=== PATIENT | female | born 1975 | race African-American/Black ===

== ENCOUNTER 2018-06-09 16:22 | Emergency (ER) | payer OTHER ==
[~2018-06-09] VITALS: Ht 172.7 cm; Wt 113.4 kg
--- NOTE | 2018-06-09 17:56 | RADIOLOGY REPORT ---
EXAMINATION: XR ANKLE, LEFT XR FOOT, LEFT CLINICAL INFORMATION: Left foot and ankle pain after fall COMPARISON: None TECHNIQUE: Left ankle, 3 views Left foot, 3 views FINDINGS: Left ankle: Alignment is normal. The talar dome is well-positioned within the intact ankle mortise. Soft tissues are swollen around the ankle. The ankle joint space and syndesmotic space are normal. Left foot: Alignment is normal. No acute fracture or subluxation. The joint spaces are well-preserved throughout the foot. IMPRESSION: - No acute osseous injury in the left foot or ankle. - Soft tissue swelling is seen around the ankle.
--- NOTE | 2018-06-09 18:13 | RADIOLOGY REPORT ---
EXAMINATION: XR HUMERUS, LEFT CLINICAL INFORMATION: Pain. Question foreign body COMPARISON: None TECHNIQUE: AP and lateral views of the left humerus. FINDINGS: The bones and soft tissues are normal. No fracture. Imaged portions of the shoulder and elbow are unremarkable. IMPRESSION: Normal left humerus. No radiopaque foreign body. If a nonopaque foreign body suspected, consider targeted ultrasound
--- NOTE | 2018-06-09 18:19 | ED GENERAL ADULT ---
History of Present Illness General Chief Complaint: General Adult Stated Complaint: PT LT ANKLE AND LT ARM HAS PAIN FOR A WHILE Source: patient Exam Limitations: no limitations Vital Signs & Intake/Output Vital Signs & Intake/Output Vital Signs Date Time Temp Pulse Resp B/P B/P Pulse O2 O2 Flow FiO2 Mean Ox Delivery Rate 06/09 1823 97.9 70 20 116/71 99 Room Air 06/09 1625 97.1 84 18 121/53 97 Room Air Allergies Coded Allergies: acetaminophen (From TYLOX) (Intermediate, RASH 06/09/18) oxycodone (From TYLOX) (Intermediate, RASH 06/09/18) Reconcile Medications Ibuprofen 800 MG TABLET 1 TAB PO TID PRN PAIN Triage Note: PT STATES THAT 2 MONTHS AGO SHE FELL RUNNING AWAY FROM SOMEONE AND HURT HER L ANKLE AND CAUGHT HER L ARM ON A FENCE. PT STATES THAT SHE WENT TO [facility] AND HAD NEGATIVE XRAY BUT THAT ITS STILL HURTING HER Triage Nurses Notes Reviewed? yes Onset: Abrupt Duration: week(s): (2 MONTHS), constant, continues in ED, getting worse Timing: recent history Injury Environment: home Severity: mild, moderate Severity Numbers: 6 No Modifying Factors: none LMP (ages 10-50): unknown : No Patient currently breastfeeds: No HPI: 42-year-old female history of asthma presents for evaluation of pain in her left ankle and left arm. Patient reports 2 months ago she was running away from someone when she twisted her left ankle and hit her left upper arm against the fence causing a small laceration. She reports she went to [facility] but states she left before she got a for results. She states she still has pain and swelling to the lateral aspect of the left ankle pain is worse with movement but she is able to walk. She has not taken any medicine for this. She also states she has some pain in the area of the laceration on her left upper arm is concerned about foreign body. She is up-to-date on tetanus. She denies any numbness or tingling no knee or hip pain no other injuries. There was no head strike or loss of consciousness. (Candelario Landon) Past History Travel History Traveled to [place] past 21 day No Medical History Any Pertinent Medical History? see below for history Neurological: NONE EENT: NONE Cardiovascular: NONE Respiratory: asthma Gastrointestinal: NONE Hepatic: NONE Renal: NONE Musculoskeletal: NONE Psychiatric: NONE Endocrine: NONE Blood Disorders: NONE Cancer(s): NONE MANUFACTURING PROJECT MANAGER/Reproductive: NONE Surgical History Surgical History: non-contributory Psychosocial History What is your primary language Faroese Tobacco Use: Never used ETOH Use: denies use Illicit Drug Use: denies illicit drug use Family History Hx Contributory? No (Candelario Landon) Review of Systems Review of Systems Constitutional: Reports: no symptoms. EENTM: Reports: no symptoms. Respiratory: Reports: no symptoms. Cardiovascular: Reports: no symptoms. GI: Reports: no symptoms. Genitourinary: Reports: no symptoms. Musculoskeletal: Reports: joint pain, joint swelling, muscle pain, muscle stiffness. Skin: Reports: no symptoms. Neurological/Psychological: Reports: no symptoms. Hematologic/Endocrine: Reports: no symptoms. Immunologic/Allergic: Reports: no symptoms. All Other Systems: Reviewed and Negative (Candelario Landon) Physical Exam Physical Exam General Appearance: well developed/nourished, no apparent distress, alert, awake Head: atraumatic, normal appearance Eyes: Bilateral: normal appearance, EOMI. Ears, Nose, Throat: hearing grossly normal Neck: normal inspection, supple, full range of motion Respiratory: no respiratory distress Peripheral Pulses: 2+ tibialis posterior (R), 2+ tibialis posterior (L), 2+ dorsalis pedis (R), 2+ dorsalis pedis (L) Back: normal inspection, normal range of motion, no vertebral tenderness Extremities: normal range of motion, the lateral aspect of the left ankle is swollen. There is tenderness of the lateral malleolus. No redness or bruising full range of motion and intact neurovascular supply intact patient is able to walk and bear weight swelling or tenderness no tenderness at the knee, there is a healing laceration with keloid formation over the lateral left upper arm. The laceration is about 1 cm. There is no surrounding erythema and no discharge no focal fluctuant areas full range of motion of the left upper trauma is intact and neurovascular supply intact Neurologic/Psych: no motor/sensory deficits, awake, alert, oriented x 3, normal gait, normal mood/affect Skin: intact, normal color, warm/dry Core Measures ACS in differential dx? No CVA/TIA Diagnosis: No Sepsis Present: No Sepsis Focused Exam Completed? No (Candelario Landon) Progress Differential Diagnoses I considered the following diagnoses in my evaluation of the patient: [Sprain, contusion, fracture] Plan of Care: Orders Procedure Date/time Status Durable Medical Equipment 06/09 1829 Active Patient is here for left arm and left ankle pain after a fall 2 months ago. On exam she does have some swelling and tenderness the lateral malleolus. She also has a keloid in her left upper extremity. X-rays of the ankle foot and left upper extremity are negative for fracture. Advised rest ice elevation depression. Josue wrap applied to the ankle. Patient is given crutches. Ibuprofen as needed for pain. Follow-up with podiatry/primary care doctor. Discussed return precautions patient agrees the plan Diagnostic Imaging: Viewed by Me: Radiology Read. Discussed w/RAD: Radiology Read. Radiology Impression: PATIENT: CARRIE CALLEJAS PRESENT AGE: 42 PATIENT ACCOUNT NO: [id number] : 74 LOCATION: [facility] ORDERING PHYSICIAN: Candelario BOYER SERVICE DATE: 06/09/18 EXAM TYPE: RAD - XRY-HUMERUS, LEFT EXAMINATION: XR HUMERUS, LEFT CLINICAL INFORMATION: Pain. Question foreign body COMPARISON: None TECHNIQUE: AP and lateral views of the left humerus. FINDINGS: The bones and soft tissues are normal. No fracture. Imaged portions of the shoulder and elbow are unremarkable. IMPRESSION: Normal left humerus. No radiopaque foreign body. If a nonopaque foreign body suspected, consider targeted ultrasound DICTATED BY: Breezy Paulino MD DATE/TIME DICTATED:06/09 [facility] ATTENDANT:CORI DATE/TIME TRANSCRIBED:06/09/181807 CONFIDENTIAL, DO NOT COPY WITHOUT APPROPRIATE AUTHORIZATION. <Electronically signed in Other Vendor System> SIGNED BY: Breezy Paulino MD 06/09/181812, PATIENT: CARRIE CALLEJAS PRESENT AGE: 42 PATIENT ACCOUNT NO: [id number] : 74 LOCATION: [facility] ORDERING PHYSICIAN: Candelario BOYER SERVICE DATE: 06/09/18 EXAM TYPE: RAD - XRY-ANKLE 3 OR MORE VIEWS L; XRY-FOOT COMPLETE, LEFT EXAMINATION: XR ANKLE, LEFT XR FOOT, LEFT CLINICAL INFORMATION: Left foot and ankle pain after fall COMPARISON: None TECHNIQUE: Left ankle, 3 views Left foot, 3 views FINDINGS: Left ankle: Alignment is normal. The talar dome is well-positioned within the intact ankle mortise. Soft tissues are swollen around the ankle. The ankle joint space and syndesmotic space are normal. Left foot: Alignment is normal. No acute fracture or subluxation. The joint spaces are well-preserved throughout the foot. IMPRESSION : - No acute osseous injury in the left foot or ankle. - Soft tissue swelling is seen around the ankle. DICTATED BY: Isrrael Beavers MD DATE/TIME DICTATED:1748 [facility] ATTENDANT:CORI DATE/TIME TRANSCRIBED:06/09/181748 CONFIDENTIAL, DO NOT COPY WITHOUT APPROPRIATE AUTHORIZATION. Initial ED EKG: none (Candelario Landon) Departure Departure Disposition: HOME OR SELF CARE Condition: Stable Clinical Impression Primary Impression: Ankle pain, left Qualifiers: Chronicity: acute Qualified Code: M25.572 - Pain in left ankle and joints of left foot Referrals: Elisa COFFEY,[place] Unknown (PCP/Family) Additional Instructions: Rest, keep your leg elevated. Ibuprofen 800 mg every 8 hours with food as needed for pain. Wear Josue wrap. Apply ice for 15-20 minutes every few hours. Make a follow-up with Dr. Pérez for a recheck in a few days. Use crutches for walking. Monitor your symptoms return with any concerns Departure Forms: Customer Survey General Discharge Information Prescriptions: Current Visit Scripts Ibuprofen 1 TAB PO TID PRN PAIN #30 TAB (Candelario Landon) PA/[employer] Co-Sign Statement Statement: ED Attending supervision documentation- I saw and evaluated the patient. I have also reviewed all the pertinent lab results and diagnostic results. I agree with the findings and the plan of care as documented in the PA's/[employer]'s documentation. x I have reviewed the ED Record and agree with the PA's/[employer]'s documentation. [] Additions or exceptions (if any) to the PAs/[employer]'s note and plan are summarized below: [] (Joseph RAYMOND,Rodney) Critical Care Note Critical Care Note Critical Care Time: non-applicable (Candelario Landon)
[2018-06-09 18:23] VITALS: BP 116/71
[2018-06-09] MEDS ORDERED: IBUPROFEN800 M1 PO (18:31)
== END 2018-06-09 18:44 ==
LOC: ERH 16:22
DX: M25.572 Pain in left ankle and joints of left foot (principal); M79.622 Pain in left upper arm
CPT/HCPCS: 73060-LT; 73610-LT; 73630-LT